=== PATIENT | female | born 1960 | race Caucasian/White ===

== ENCOUNTER 2020-11-17 08:01 | Outpatient (REF) | payer OTHER, SELFPAY ==
--- NOTE | ~2020-11-17 | MM_ITS ---
EXAMINATION: MM SCREENING DIGITAL BREAST TOMOSYNTHESIS, BILATERAL CLINICAL INFORMATION: Screening. Asymptomatic. The lifetime risk of breast cancer based on the Tyrer-Cuzick Model is 14%. COMPARISON: Mammography: 11/12/2019, 11/06/2018, 10/24/2017 TECHNIQUE: Digital breast tomosynthesis is performed in both the craniocaudal and mediolateral oblique views along with computer-aided detection (CAD). Synthesized 2D images are generated from the tomosynthesis. FINDINGS: The breasts are extremely dense, which lowers the sensitivity of mammography (ACR BI-RADS breast composition Category d). There are no significant masses, abnormal calcifications, or other abnormalities. No developing density. The axilla and skin contours are unremarkable. MM/MM tomosynthesis screening BI IMPRESSION: No mammographic evidence of malignancy. ASSESSMENT: BI-RADS 1: Negative RECOMMENDATION: Routine annual mammography screening. This patient's information was entered into a reminder system with a target due date for their next mammogram.
== END 2020-11-17 08:02 | disposition home or self-care (01) ==
LOC: HO.MAMMO 08:01
PROVIDERS: Visit Provider Internal Medicine
DX: Z12.31 Encounter for screening mammogram for malignant neoplasm of breast (principal)
CPT/HCPCS: 77063; 77067

== ENCOUNTER → 2020-12-14 08:35 | Outpatient (BNVA) | payer OTHER, SELFPAY | PROVIDERS: PCP Internal Medicine; Visit Provider Internal Medicine | DX: R07.2 Precordial pain (principal); I34.1 Nonrheumatic mitral (valve) prolapse; I49.1 Atrial premature depolarization; I49.3 Ventricular premature depolarization | CPT/HCPCS: 93005 ==

== ENCOUNTER → 2020-12-18 07:35 | Outpatient (REF) | payer OTHER, SELFPAY ==
--- NOTE | 2020-12-18 07:41 | CA_ITS ---
Transthoracic Echocardiogram Patient (Last, First, Middle): Noris Wang A Gender: Female Date of : 1960 Age: 60 Procedure Date: 12/18/2020 Procedure Type: Transthoracic Echocardiogram Location: OP Height: 167.64 cm Weight: 62.14 kg BSA: 1.70 m2 Heart Rate: bpm BP: 109 / 60 mmHg Environmental Services Worker: Kumar MD: Greg Childress MD [facility] Staff: Humberto Vann MD Symptoms: I25.10 - Atherosclerotic heart disease of [place] coronary... Study Quality: Good ECG Rhythm: Sinus Conclusions: - Essentially normal study Findings Left Ventricle Normal left ventricular size, thickness, and systolic function. The visually estimated ejection fraction is between 60-65%. Spectral Doppler is indicative of an impaired relaxation filling pattern. E/E prime ratio is <8, consistent with normal filling pressures. Evidence suggests grade I (mild) diastolic dysfunction. Right Ventricle Normal right ventricular cavity size and systolic function. Atria Both atria are normal in size. There is no evidence of interatrial shunt. Aortic Valve Normal aortic valve structure and function. There is no aortic valve stenosis. There is no aortic valve regurgitation. Mitral Valve Normal mitral valve structure and function. There is trace mitral valve regurgitation. There is no mitral valve stenosis. Pulmonic Valve The pulmonic valve is likely normal. Tricuspid Valve Normal tricuspid valve structure. There is trace tricuspid valve regurgitation. The right ventricular systolic pressure is normal. The right ventricular systolic pressure is 27 mmHg. Normal right atrial pressure. There is no evidence of pulmonary hypertension. Great Vessels All visible segments of the aorta are normal in size. The pulmonary artery was not well visualized. Venous The inferior vena cava is normal in size and collapses greater than 50% with inspiration. Pericardium/Pleural There is no evidence of pericardial effusion. Prior Study Comparison No significant change compared to prior study dated: 11/06/2016. No definitive evidence of mitral valve prolapse on this study Measurements 2D Linear Measurements RVIDd: 2.45 RVIDd Index: 1.44 IVSd: 0.71 0.6-0.9/0.6-1.0 cm LVIDd: 3.68 3.9-5.3/4.2-5.9 cm LVIDd Index: 2.16 2.4-3.2/2.2-3.1 cm/m2 LVIDs: 2.49 2.0-3.6 cm LVPWd: 1.01 0.7-1.1 cm Ao Root: 2.90 2.1-3.5 cm LA Diam: 2.40 2.7-3.8/3.0-4.0 cm LAIDs Index: 1.41 1.5-2.3 cm/m2 LV Mass: 111.93 67-162/88-224 g LV Mass Index: 65.84 43-95/49-115 g/m2 LVOT Diam: 2.00 3.0+(-)1.3 cm 2D Systolic Function EF 4C: 58.70 >55% EF 2C: 57.60 >55% EF BiP: 58.00 >55% Mitral Valve MV Pk E: 0.85 MV PK A: 0.78 MV Decel Time: 219.00 E/A: 1.10 E'Lateral: 6.09 E'Medial: 4.90 E/E' Med: 17.20 E/E' Lat: 13.90 Decel [place]: 3.85 Aortic Valve AoV Pk Abraham: 1.12 AoV Mn Abraham: 0.84 AoV VTI: 0.26 AoV Pk Grad: 5.00 Aov Mn Grad: 3.00 SAMIRA Cont.VTI: 2.06 LVOT LVOT Pk Abraham: 0.73 LVOT Mn Abraham: 0.54 LVOT VTI: 0.17 LVOT Pk Grad: 2.00 LVOT Mn Grad: 1.00 LVOT Diam: 2.00 LVOT Area: 3.14 Diastolic Function MV Pk E: 0.85 MV Pk A: 0.78 E/A: 1.10 E'Medial: 4.90 E/E' Med: 17.20 E' Laterial: 6.09 E/E' Lat: 13.90 Tricuspid Valve TR Pk Abraham: 2.44 TR Pk Grad: 24.00 RA Press: 3.00 RVSP: 27.00 Great Vessels Aorta Ao Root-2D: 2.90 2.0-3.7 cm Ao Asc: 2.90 2.1-3.4 cm Updated in Other Vendor System with Status of Final Humberto Vann MD electronically signed on 12/18/2020 5:34:35 PM with status of Final
== END ==
LOC: HO.CARD 07:35
PROVIDERS: PCP Internal Medicine; Visit Provider Internal Medicine
DX: I25.10 Atherosclerotic heart disease of native coronary artery without angina pectoris (principal); I34.1 Nonrheumatic mitral (valve) prolapse
CPT/HCPCS: 93306

== ENCOUNTER → 2020-12-27 11:00 | Outpatient (REF) | payer OTHER, SELFPAY ==
--- NOTE | 2020-12-27 11:04 | CA_ITS ---
Acquisition Time: 2020-12-27 11:18:18 Total Exercise Time: 00:08:20 Test Indications: Abnormal ECG Medications: ASA Protocol: NATANAEL Max HR: 160 BPM 98% of Pred: 162 BPM Max BP: 128/072 mmHG Max Work Load: 10.1 METS Exercise stress test using Natanael protocol, total of 8 min 20 sec. METS 10.00 and TAPHR up to 98 %. Pt toolerated well, Denies any anginal sx. EKG with occ. PAC's, multiple PVC's. No ischemic chnages seen during exercise or in recovery. ECHO images taken at rest and immediately after peak exercise heart rate achieved. Definity contrast used. Normotensive response to exercise. Test reviewed with Dr. Childress. Referred By: Greg Childress Overread By: Micaela Britton NP
== END ==
LOC: HO.CARD 11:00
PROVIDERS: PCP Internal Medicine; Visit Provider Internal Medicine
DX: R07.2 Precordial pain (principal); I34.1 Nonrheumatic mitral (valve) prolapse
CPT/HCPCS: 93350; Q9957